=== PATIENT | female | born 1985 | race Caucasian/White ===

== ENCOUNTER 2017-09-13 10:02 | Inpatient (IN) | payer OTHER ==
[~2017-09-13] VITALS: Ht 160 cm; Wt 45.5 kg
[~2017-09-13 10:02] MED LIST: ONDA4TAB12 PO; OXYC-145 PO; OXYC-150 PO; pantoprazole 40 MG vial IV SCH
[2017-09-13] MEDS ORDERED: ondansetron/PF 4mg/2ml inj IV ONE ×2 (10:15→18:25)
[2017-09-13] MEDS ORDERED: normal saline 1000ml 1,000 ML IV ONE ×3 (10:15→22:06)
[2017-09-13] MEDS ORDERED: morphine 5 MG/ML injection IV ONE (10:15)
[2017-09-13] MEDS ORDERED: morphine sulfate 8 MG/ML SYRINGE IV ONE ×2 (10:35→11:05)
[2017-09-13 11:12] LABS: BASOPHILS % (AUTO) 0 % (0-1); EOSINOPHILS # (AUTO) 0.2 X10'3 (0-0.9); EOSINOPHILS % (AUTO) 1.5 % (0-6); HEMATOCRIT 38.2 % (35.0-45.0); HEMOGLOBIN 12.9 g/dl (12.0-16.0); LYMPHOCYTES # (AUTO) 0.6 X10'3 (1.1-4.8); LYMPHOCYTES % (AUTO) 3.7 % (21-51); MEAN CORPUSCULAR HEMOGLOBIN 29.6 PG (27.0-31.0); MEAN CORPUSCULAR HGB CONC 33.8 % (33.0-36.5); MEAN CORPUSCULAR VOLUME 87.5 FL (78-98); MEAN PLATELET VOLUME 8.4 FL (7.4-10.4); MONOCYTES # (AUTO) 0.8 X10'3 (0-0.9); MONOCYTES % (AUTO) 5.3 % (2-12); NEUTROPHILS # (AUTO) 14.2 X10'3 (1.8-7.7); NEUTROPHILS % (AUTO) 89.5 % (42-75); PLATELET COUNT 250 X10'3 (140-440); RED BLOOD COUNT 4.36 X10'6 (4.20-5.60); RED CELL DISTRIBUTION WIDTH 13.9 % (11.5-14.5); WHITE BLOOD COUNT 15.9 X10'3 (4.5-11.0)
[2017-09-13 11:19] LABS: ALANINE AMINOTRANSFERASE 27 U/L (12-78); ALBUMIN 3.6 G/DL (3.4-5.0); ALBUMIN/GLOBULIN RATIO 0.9 (1.1-1.5); ALKALINE PHOSPHATASE 53 IU/L (46-116); ANION GAP 7 (8-16); ASPARTATE AMINO TRANSFERASE 17 U/L (10-37); BILIRUBIN,TOTAL 0.5 MG/DL (0.1-1.0); BLOOD UREA NITROGEN 10 MG/DL (7-18); BUN/CREATININE RATIO 15.2 (6.6-38.0); CALCIUM 8.8 MG/DL (8.5-10.1); CHLORIDE 103 MMOL/L (99-107); CREATININE 0.66 MG/DL (0.40-0.90); GLUCOSE 104 MG/DL (70-104); LIPASE 102 U/L (73-393); POTASSIUM 3.6 MMOL/L (3.5-5.1); SODIUM 137 MMOL/L (135-145); TOTAL CARBON DIOXIDE 26.6 MMOL/L (24-32); TOTAL PROTEIN 7.4 G/DL (6.4-8.2); eGFR > 90 ML/MIN
[2017-09-13] MEDS ORDERED: ketorolac trometh. 30mg/ml inj. IV ONE ×2 (11:45→21:10)
[2017-09-13 12:23] LABS: PLATELET ESTIMATE NORMAL; TOTAL CELLS COUNTED 100; TOXIC GRANULATION 1+
[2017-09-13 12:31] LABS: CLARITY,URINE Clear (Clear); COLOR,URINE Yellow (Yellow); GLUCOSE, URINE Negative (Neg); KETONES,URINE Trace mg/dl (Neg); LEUKOCYTE ESTERASE ,URINE Negative (Neg); NITRITES, URINE Negative (Neg); OCCULT BLOOD,URINE Negative (Neg); PROTEIN,URINE Negative (Neg); UROBILINOGEN,URINE 0.2 E.U/dL (0.2-1.0)
[2017-09-13 12:32] LABS: UA COLLECTION TYPE CLN CATCH MIDSTREAM
[2017-09-13 12:33] LABS: URINE HCG POSITIVE (NEG)
[2017-09-13] MEDS ORDERED: LORazepam 2 mg/ml vial IV ONE (12:45)
[2017-09-13] MEDS ORDERED: fentaNYL/PF 50MCG/1 ML 2ML syringe IV ONE ×4 (12:45→19:50)
[2017-09-13 13:02] LABS: BETA HCG,QUANTITATIVE 99 mIU/ml
[2017-09-13] MEDS ORDERED: piperacillin/tazo 3.375gm/50ml 50 ML IV ONE (14:05)
[2017-09-13] MEDS ORDERED: ONDA8TAB9 PO (14:29)
[2017-09-13] MEDS ORDERED: LIDOcaine Viscous 15ml cup PO ONE (15:00)
[2017-09-13] MEDS ORDERED: mag hydrox/Alum hydrox/simeth 30ml oral suspension PO ONE (15:00)
[2017-09-13] MEDS ORDERED: HYDR-565 PO (15:56)
[2017-09-13] MEDS ORDERED: MAG355OR18 PO (17:00)
[2017-09-13] MEDS ORDERED: LIDO15SO2 PO (17:00)
[2017-09-13] MEDS ORDERED: SUCR1ORA2 PO (17:00)
[2017-09-13] MEDS ORDERED: acetaminophen 325mg tablet PO ONE (18:10)
[2017-09-13] MEDS ORDERED: normal saline 1000ml 1,000 ML IV SCH ×2 (18:10→21:45)
[2017-09-13] MEDS ORDERED: TRAM50TA2 PO (18:21)
[2017-09-13] MEDS ORDERED: ALPR1TAB7 PO (18:21)
[2017-09-13] MEDS ORDERED: NORG1TAB (18:21)
[2017-09-13] MEDS ORDERED: GUAI473S11 (18:21)
[2017-09-13] MEDS ORDERED: ZOLP10TA5 PO (18:21)
[2017-09-13] MEDS ORDERED: MICO1KIT8 (18:21)
[2017-09-13] MEDS ORDERED: LEVO750T46 PO (18:21)
[2017-09-13] MEDS ORDERED: temazepam 15mg capsule PO PRN (21:00)
[2017-09-13] MEDS ORDERED: HYDROcodone/acetaminophen 5mg/325mg tablet PO PRN (21:35)
[2017-09-13] MEDS ORDERED: bisacodyl 10mg suppository rectal RC PRN (21:35)
[2017-09-13] MEDS ORDERED: acetaminophen 650mg rectal suppository RC PRN (21:35)
[2017-09-13] MEDS ORDERED: diphenhydrAMINE 25mg capsule PO PRN (21:35)
[2017-09-13] MEDS ORDERED: acetaminophen 325mg tablet PO PRN ×2 (21:35)
[2017-09-13] MEDS ORDERED: HYDROmorphone 1 mg/ml syringe IV PRN ×2 (21:35)
[2017-09-13] MEDS ORDERED: magnesium hydroxide 30ml (MOM) UD suspension PO PRN (21:35)
[2017-09-13] MEDS ORDERED: diphenhydrAMINE 50 mg/ml inj IV PRN (21:35)
[2017-09-13] MEDS ORDERED: metoclopramide 5 mg/ml inj IV ONE (21:40)
[2017-09-13] MEDS ORDERED: proCHLORperazine 10 MG/2 ml inj IV ONE (21:45)
[2017-09-13] MEDS ORDERED: diphenhydrAMINE 50 mg/ml inj IV ONE (21:45)
[2017-09-13] MEDS ORDERED: enoxaparin 60mg/0.6ml syringe SUBCUT ONE (22:06)
[2017-09-13 22:07] LABS: D-DIMER 2.02 MG/L FEU (0-0.50)
[2017-09-13 22:15] LABS: CREATINE KINASE 50 U/L (26-192); MAGNESIUM 1.6 MG/DL (1.5-2.4); PHOSPHORUS 1.4 MG/DL (2.3-4.5); TROPONIN I < 0.04 NG/ML (0.0-0.05)
[2017-09-13] MEDS: normal saline 1000ml 1,000 ML IV SCH (22:21)
[2017-09-13] MEDS: HYDROcodone/acetaminophen 10/325mg tab PO PRN (22:22)
[2017-09-13] MEDS: ALPRAZolam 0.5mg tablet PO PRN (23:02)
[2017-09-13] MEDS: cefTRIAXone 1g/NS 100ml IVPB 100 ML IV SCH (23:02)
[2017-09-13] MEDS: zolpidem 5mg tablet PO SCH (23:03)
[2017-09-13] MEDS: azithromycin/NS 500mg/250ml 250 ML IV SCH (23:03)
[2017-09-13 23:48] VITALS: BP 99/53
[2017-09-14] MEDS: methylPREDNISolone sod succ 125mg/2ml vial IV SCH ×3 (00:02→15:34)
[2017-09-14] MEDS: morphine sulfate 8 MG/ML SYRINGE IV PRN ×4 (00:02→11:20)
[2017-09-14] MEDS: HYDROcodone/acetaminophen 10/325mg tab PO PRN ×3 (05:25→14:21)
[2017-09-14] MEDS ORDERED: sodium phosphate inj. 30 MMOL in dextrose 5%-water 250 ML IV PRN (05:59)
[2017-09-14] MEDS ORDERED: sodium phosphate inj. 15 MMOL in dextrose 5%-water 150 ML IV PRN (05:59)
[2017-09-14] MEDS ORDERED: Neutra Phos packet PO PRN (06:00)
[2017-09-14 06:04] LABS: BASOPHILS % (AUTO) 0 % (0-1); EOSINOPHILS # (AUTO) 0.1 X10'3 (0-0.9); EOSINOPHILS % (AUTO) 1.5 % (0-6); HEMATOCRIT 30.7 % (35.0-45.0); HEMOGLOBIN 10.2 g/dl (12.0-16.0); LYMPHOCYTES # (AUTO) 0.2 X10'3 (1.1-4.8); LYMPHOCYTES % (AUTO) 2.7 % (21-51); MEAN CORPUSCULAR HEMOGLOBIN 29.1 PG (27.0-31.0); MEAN CORPUSCULAR HGB CONC 33.1 % (33.0-36.5); MEAN CORPUSCULAR VOLUME 87.8 FL (78-98); MEAN PLATELET VOLUME 8.3 FL (7.4-10.4); MONOCYTES # (AUTO) 0.1 X10'3 (0-0.9); MONOCYTES % (AUTO) 1.5 % (2-12); NEUTROPHILS % (AUTO) 94.3 % (42-75); PLATELET COUNT 216 X10'3 (140-440); RED BLOOD COUNT 3.49 X10'6 (4.20-5.60); WHITE BLOOD COUNT 8.5 X10'3 (4.5-11.0)
[2017-09-14 06:20] LABS: ALANINE AMINOTRANSFERASE 23 U/L (12-78); ALBUMIN 2.7 G/DL (3.4-5.0); ALBUMIN/GLOBULIN RATIO 0.8 (1.1-1.5); ALKALINE PHOSPHATASE 42 IU/L (46-116); ANION GAP 6 (8-16); ASPARTATE AMINO TRANSFERASE 12 U/L (10-37); BILIRUBIN,TOTAL 0.2 MG/DL (0.1-1.0); BLOOD UREA NITROGEN 6 MG/DL (7-18); BUN/CREATININE RATIO 8.3 (6.6-38.0); CALCIUM 7.6 MG/DL (8.5-10.1); CHLORIDE 109 MMOL/L (99-107); CREATININE 0.72 MG/DL (0.40-0.90); GLUCOSE 161 MG/DL (70-104); PHOSPHORUS 1.7 MG/DL (2.3-4.5); POTASSIUM 3.7 MMOL/L (3.5-5.1); SODIUM 141 MMOL/L (135-145); TOTAL CARBON DIOXIDE 25.8 MMOL/L (24-32); TOTAL PROTEIN 5.9 G/DL (6.4-8.2); eGFR > 90 ML/MIN
[2017-09-14 06:30] VITALS: BP 111/63
[2017-09-14 07:14] LABS: OCCULT BLOOD STOOL POSITIVE (Neg)
[2017-09-14] MEDS: ondansetron/PF 4mg/2ml inj IV PRN ×3 (07:48→20:45)
[2017-09-14] MEDS: cefTRIAXone 1g/NS 100ml IVPB 100 ML IV SCH (07:54)
[2017-09-14] MEDS: azithromycin/NS 500mg/250ml 250 ML IV SCH (07:55)
[2017-09-14 07:57] LABS: C DIFF ANTIGEN NEGATIVE (NEGATIVE); C DIFF SPECIMEN=DIARRHEA? ACCEPTABLE; C DIFFICILE TOXINS A&B NEGATIVE (Neg)
[2017-09-14] MEDS: docusate sod 100mg capsule PO SCH ×2 (07:57→20:00)
[2017-09-14] MEDS: normal saline 1000ml 1,000 ML IV SCH ×2 (07:57→17:19)
[2017-09-14] MEDS: enoxaparin 50mg/0.5ml (from 3ml vial) syringe SUBCUT SCH ×2 (07:58→20:00)
[2017-09-14] MEDS: ALPRAZolam 0.5mg tablet PO PRN ×2 (09:19→20:04)
[2017-09-14 12:16] VITALS: BP 118/64
[2017-09-14] MEDS ORDERED: fluconazole 150mg tablet PO ONE (13:05)
[2017-09-14] MEDS: albuterol 2.5 MG/3 ML nebule NEB PRN ×3 (13:48→22:23)
[2017-09-14] MEDS ORDERED: LORazepam 2 mg/ml vial IV STA (15:58)
[2017-09-14] MEDS ORDERED: LORazepam 2 mg/ml vial ONE (16:02)
[2017-09-14 16:11] LABS: ABG BASE EXCESS -7.5 mmol/L (-2.0-3.0); ABG HCO3 10.6 mmol/L (22.0-26.0); ABG OXYGEN SATURATION 98.7 % (95-98); ABG PH (T) 7.603 (7.350-7.450); ABG PO2 (T) 121.4 mmHg (83-108); FCOHb 0.3 % (0.5-1.5); FLOW 5 L/min; FMetHb 0.3 % (0.3-1.12); FO2Hb 98.1 % (94-100); RESPIRATORY RATE (OBSERVED) 40 b/min; TOTAL HEMOGLOBIN 12.2 G/dl (12.0-16.0)
[2017-09-14] MEDS: lactobacillus rhamnosus 10,000 MMU CELLS/CAPSULE PO SCH (17:19)
[2017-09-14] MEDS ORDERED: iohexol 350MG/ML 100ml bottle IV ONE (18:09)
[2017-09-14] MEDS ORDERED: morphine/NS 5 mg/ml CADD 50 ML IV SCH (18:10)
[2017-09-14] MEDS ORDERED: CADD PCA waste documentation MC SCH (18:15)
[2017-09-14] MEDS: MORPHINE CADD 5 MG/ML 50ML IV SCH ×4 (19:00→23:00)
[2017-09-14 20:00] VITALS: BP 131/66
[2017-09-14] MEDS: LACTOSE-FREE FOOD 237ML (BOOST) PO SCH (20:46)
[2017-09-14] MEDS: codeine/proMETHazine 5ml UD syrup PO PRN (22:22)
[2017-09-14] MEDS: benzonatate 100mg capsule PO PRN (22:22)
[2017-09-14] MEDS: guaiFENesin ER 600mg tablet PO SCH (22:30)
[2017-09-14] MEDS: zolpidem 5mg tablet PO SCH (22:33)
[2017-09-15] VITALS: BP 94/53
[2017-09-15] MEDS: normal saline 1000ml 1,000 ML IV SCH (00:34)
[2017-09-15] MEDS: methylPREDNISolone sod succ 125mg/2ml vial IV SCH ×3 (00:40→16:27)
[2017-09-15] MEDS: MORPHINE CADD 5 MG/ML 50ML IV SCH ×12 (00:49→23:00)
[2017-09-15] MEDS: ondansetron/PF 4mg/2ml inj IV PRN ×3 (03:52→19:56)
[2017-09-15] MEDS: codeine/proMETHazine 5ml UD syrup PO PRN ×2 (03:52→19:54)
[2017-09-15] MEDS: benzonatate 100mg capsule PO PRN ×2 (03:52→10:23)
[2017-09-15] MEDS: albuterol 2.5 MG/3 ML nebule NEB PRN ×4 (03:53→21:18)
[2017-09-15] MEDS ORDERED: HYDROcodone/acetaminophen 5mg/325mg tablet PO ONE (05:10)
[2017-09-15 07:24] VITALS: BP 110/65
[2017-09-15] MEDS: enoxaparin 50mg/0.5ml (from 3ml vial) syringe SUBCUT SCH ×2 (07:28→20:00)
[2017-09-15 07:45] LABS: BASOPHILS % (AUTO) 0 % (0-1); EOSINOPHILS # (AUTO) 0.3 X10'3 (0-0.9); EOSINOPHILS % (AUTO) 1.9 % (0-6); HEMATOCRIT 27.3 % (35.0-45.0); HEMOGLOBIN 9.2 g/dl (12.0-16.0); LYMPHOCYTES # (AUTO) 0.3 X10'3 (1.1-4.8); LYMPHOCYTES % (AUTO) 1.9 % (21-51); MEAN CORPUSCULAR HEMOGLOBIN 29.3 PG (27.0-31.0); MEAN CORPUSCULAR HGB CONC 33.7 % (33.0-36.5); MEAN CORPUSCULAR VOLUME 87.1 FL (78-98); MONOCYTES # (AUTO) 0.4 X10'3 (0-0.9); MONOCYTES % (AUTO) 2.7 % (2-12); NEUTROPHILS # (AUTO) 15.1 X10'3 (1.8-7.7); NEUTROPHILS % (AUTO) 93.5 % (42-75); PLATELET COUNT 247 X10'3 (140-440); RED BLOOD COUNT 3.14 X10'6 (4.20-5.60); RED CELL DISTRIBUTION WIDTH 14.3 % (11.5-14.5); WHITE BLOOD COUNT 16.1 X10'3 (4.5-11.0)
[2017-09-15] MEDS ORDERED: azithromycin 250mg tablet PO SCH (08:00)
[2017-09-15] MEDS: docusate sod 100mg capsule PO SCH ×2 (08:00→20:00)
[2017-09-15 08:12] LABS: ALANINE AMINOTRANSFERASE 23 U/L (12-78); ALBUMIN 2.8 G/DL (3.4-5.0); ALBUMIN/GLOBULIN RATIO 0.9 (1.1-1.5); ALKALINE PHOSPHATASE 42 IU/L (46-116); ANION GAP 7 (8-16); ASPARTATE AMINO TRANSFERASE 12 U/L (10-37); BILIRUBIN,TOTAL 0.1 MG/DL (0.1-1.0); BLOOD UREA NITROGEN 5 MG/DL (7-18); BUN/CREATININE RATIO 8.2 (6.6-38.0); CALCIUM 8.1 MG/DL (8.5-10.1); CHLORIDE 111 MMOL/L (99-107); CREATININE 0.61 MG/DL (0.40-0.90); GLUCOSE 146 MG/DL (70-104); PHOSPHORUS 2.2 MG/DL (2.3-4.5); POTASSIUM 3.4 MMOL/L (3.5-5.1); SODIUM 144 MMOL/L (135-145); TOTAL CARBON DIOXIDE 26.2 MMOL/L (24-32); eGFR > 90 ML/MIN
[2017-09-15] MEDS: piperacillin-tazo 2.25gm/50ml 50 ML IV SCH ×2 (08:30→16:27)
[2017-09-15] MEDS: guaiFENesin ER 600mg tablet PO SCH ×2 (08:31→19:54)
[2017-09-15] MEDS: LACTOSE-FREE FOOD 237ML (BOOST) PO SCH ×3 (08:39→18:20)
[2017-09-15] MEDS: benzocaine/menthol oral lozeng 1 EACH BOX MM PRN ×2 (08:41→20:11)
[2017-09-15] MEDS: lactobacillus rhamnosus 10,000 MMU CELLS/CAPSULE PO SCH ×2 (08:45→17:30)
[2017-09-15] MEDS: ALPRAZolam 0.5mg tablet PO PRN (10:23)
[2017-09-15] MEDS: cefTRIAXone 1g/NS 100ml IVPB 100 ML IV SCH (11:57)
[2017-09-15 12:00] VITALS: BP 114/46
[2017-09-15] MEDS ORDERED: furosemide 20 MG/2 ML vial IV ONE (12:20)
[2017-09-15] MEDS ORDERED: iohexol 350MG/ML 100ml bottle IV ONE (13:47)
[2017-09-15] MEDS ORDERED: albuterol 2.5 MG/3 ML nebule NEB ONE (13:55)
[2017-09-15] MEDS: proCHLORperazine 10 MG/2 ml inj IV PRN ×2 (13:58→21:42)
[2017-09-15 14:16] LABS: ABG BASE EXCESS -3.8 mmol/L (-2.0-3.0); ABG HCO3 15.7 mmol/L (22.0-26.0); ABG OXYGEN SATURATION 98.8 % (95-98); ABG PCO2 (T) 16.5 mmHg (32.0-45.0); ABG PH (T) 7.596 (7.350-7.450); ABG PO2 (T) 159.9 mmHg (83-108); ALLEN'S TEST Positive; FCOHb 0.2 % (0.5-1.5); FLOW 10 L/min; FMetHb 0.1 % (0.3-1.12); FO2Hb 98.5 % (94-100); RESPIRATORY RATE (OBSERVED) 40 b/min
[2017-09-15] MEDS ORDERED: iohexol 300mg/ml 100ml inj. ONE (14:40)
[2017-09-15 20:00] VITALS: BP 107/74
[2017-09-15] MEDS: LORazepam 2 mg/ml vial IV ONE ×2 (20:14→22:31)
[2017-09-16] VITALS: BP 117/82
[2017-09-16] MEDS: methylPREDNISolone sod succ 125mg/2ml vial IV SCH ×3 (00:22→23:45)
[2017-09-16] MEDS: LORazepam 2 mg/ml vial IV PRN ×3 (00:26→19:18)
[2017-09-16] MEDS: piperacillin-tazo 2.25gm/50ml 50 ML IV SCH ×3 (00:26→16:28)
[2017-09-16] MEDS: zolpidem 5mg tablet PO SCH ×2 (00:28→23:46)
[2017-09-16] MEDS: MORPHINE CADD 5 MG/ML 50ML IV SCH ×12 (01:00→23:00)
[2017-09-16 07:03] LABS: BASOPHILS % (AUTO) 0 % (0-1); EOSINOPHILS # (AUTO) 0.4 X10'3 (0-0.9); HEMATOCRIT 28.1 % (35.0-45.0); HEMOGLOBIN 9.4 g/dl (12.0-16.0); LYMPHOCYTES # (AUTO) 0.4 X10'3 (1.1-4.8); LYMPHOCYTES % (AUTO) 2.5 % (21-51); MEAN CORPUSCULAR HEMOGLOBIN 29.2 PG (27.0-31.0); MEAN CORPUSCULAR HGB CONC 33.3 % (33.0-36.5); MEAN CORPUSCULAR VOLUME 87.9 FL (78-98); MONOCYTES # (AUTO) 0.4 X10'3 (0-0.9); MONOCYTES % (AUTO) 2.4 % (2-12); NEUTROPHILS # (AUTO) 16.8 X10'3 (1.8-7.7); NEUTROPHILS % (AUTO) 93.1 % (42-75); PLATELET COUNT 311 X10'3 (140-440); RED CELL DISTRIBUTION WIDTH 14.5 % (11.5-14.5); WHITE BLOOD COUNT 18.1 X10'3 (4.5-11.0)
[2017-09-16 07:20] VITALS: BP 101/53
[2017-09-16 07:26] LABS: ALANINE AMINOTRANSFERASE 28 U/L (12-78); ALBUMIN 2.7 G/DL (3.4-5.0); ALBUMIN/GLOBULIN RATIO 0.9 (1.1-1.5); ALKALINE PHOSPHATASE 40 IU/L (46-116); ANION GAP 6 (8-16); ASPARTATE AMINO TRANSFERASE 15 U/L (10-37); BETA HCG,QUANTITATIVE 218 mIU/ml; BILIRUBIN,TOTAL 0.2 MG/DL (0.1-1.0); BLOOD UREA NITROGEN 12 MG/DL (7-18); CALCIUM 8.3 MG/DL (8.5-10.1); CHLORIDE 109 MMOL/L (99-107); CREATININE 0.63 MG/DL (0.40-0.90); GLUCOSE 146 MG/DL (70-104); POTASSIUM 3.6 MMOL/L (3.5-5.1); SODIUM 144 MMOL/L (135-145); TOTAL CARBON DIOXIDE 28.8 MMOL/L (24-32); TOTAL PROTEIN 5.8 G/DL (6.4-8.2); eGFR > 90 ML/MIN
[2017-09-16 07:31] LABS: HIV ANTIBODY 1&2 RAPID NON-REACTIVE (Neg)
[2017-09-16] MEDS: cefTRIAXone 1g/NS 100ml IVPB 100 ML IV SCH ×2 (08:00→23:47)
[2017-09-16] MEDS: docusate sod 100mg capsule PO SCH ×2 (08:00→20:00)
[2017-09-16] MEDS: LACTOSE-FREE FOOD 237ML (BOOST) PO SCH ×3 (08:00→18:05)
[2017-09-16 11:00] VITALS: BP 109/71
[2017-09-16] MEDS: albuterol 2.5 MG/3 ML nebule NEB PRN ×4 (11:39→22:20)
[2017-09-16] MEDS: guaiFENesin ER 600mg tablet PO SCH ×2 (11:44→22:48)
[2017-09-16] MEDS: benzonatate 100mg capsule PO PRN ×2 (11:45→23:46)
[2017-09-16] MEDS: lactobacillus rhamnosus 10,000 MMU CELLS/CAPSULE PO SCH ×2 (11:45→17:30)
[2017-09-16] MEDS: ALPRAZolam 0.5mg tablet PO PRN (11:46)
[2017-09-16] MEDS: codeine/proMETHazine 5ml UD syrup PO PRN (11:46)
[2017-09-16] MEDS: normal saline 1000ml 1,000 ML IV SCH (12:27)
[2017-09-16] MEDS: ondansetron/PF 4mg/2ml inj IV PRN ×2 (12:54→19:32)
[2017-09-16] MEDS: proCHLORperazine 10 MG/2 ml inj IV PRN ×2 (15:35→22:59)
[2017-09-16 19:00] VITALS: BP 119/68
[2017-09-16] MEDS ORDERED: furosemide 20 MG/2 ML vial IV PRN ×2 (20:30→20:50)
[2017-09-16] MEDS ORDERED: LORazepam 2 mg/ml vial IV PRN (22:20)
[2017-09-16] MEDS: guaiFENesin/DM 10ml UD oral syrup PO PRN (22:53)
[2017-09-17] VITALS: BP 130/68
[2017-09-17] MEDS: zolpidem 5mg tablet PO SCH (00:30)
[2017-09-17] MEDS: guaiFENesin ER 600mg tablet PO SCH ×2 (00:30→08:22)
[2017-09-17] MEDS: ALPRAZolam 0.5mg tablet PO PRN (00:53)
[2017-09-17] MEDS: piperacillin-tazo 2.25gm/50ml 50 ML IV SCH ×3 (00:54→16:30)
[2017-09-17] MEDS: MORPHINE CADD 5 MG/ML 50ML IV SCH ×12 (01:00→23:00)
[2017-09-17] MEDS: albuterol 2.5 MG/3 ML nebule NEB PRN ×5 (01:09→20:08)
[2017-09-17] MEDS: normal saline 1000ml 1,000 ML IV SCH (02:26)
[2017-09-17] MEDS: codeine/proMETHazine 5ml UD syrup PO PRN (02:26)
[2017-09-17 07:00] VITALS: BP 107/58
[2017-09-17 07:17] LABS: BASOPHILS % (AUTO) 0 % (0-1); EOSINOPHILS # (AUTO) 0.2 X10'3 (0-0.9); EOSINOPHILS % (AUTO) 1.4 % (0-6); HEMATOCRIT 27.4 % (35.0-45.0); HEMOGLOBIN 9.1 g/dl (12.0-16.0); LYMPHOCYTES # (AUTO) 0.4 X10'3 (1.1-4.8); LYMPHOCYTES % (AUTO) 3.2 % (21-51); MEAN CORPUSCULAR HEMOGLOBIN 29.3 PG (27.0-31.0); MEAN CORPUSCULAR HGB CONC 33.2 % (33.0-36.5); MEAN CORPUSCULAR VOLUME 88.3 FL (78-98); MEAN PLATELET VOLUME 7.8 FL (7.4-10.4); MONOCYTES # (AUTO) 0.3 X10'3 (0-0.9); MONOCYTES % (AUTO) 2.3 % (2-12); NEUTROPHILS # (AUTO) 12.6 X10'3 (1.8-7.7); NEUTROPHILS % (AUTO) 93.1 % (42-75); PLATELET COUNT 322 X10'3 (140-440); RED BLOOD COUNT 3.11 X10'6 (4.20-5.60); RED CELL DISTRIBUTION WIDTH 14.5 % (11.5-14.5); WHITE BLOOD COUNT 13.5 X10'3 (4.5-11.0)
[2017-09-17 07:34] LABS: ALANINE AMINOTRANSFERASE 100 U/L (12-78); ALBUMIN 2.6 G/DL (3.4-5.0); ALBUMIN/GLOBULIN RATIO 0.8 (1.1-1.5); ALKALINE PHOSPHATASE 54 IU/L (46-116); ANION GAP 8 (8-16); ASPARTATE AMINO TRANSFERASE 39 U/L (10-37); BILIRUBIN,TOTAL 0.2 MG/DL (0.1-1.0); BLOOD UREA NITROGEN 14 MG/DL (7-18); BUN/CREATININE RATIO 21.5 (6.6-38.0); CALCIUM 7.9 MG/DL (8.5-10.1); CHLORIDE 107 MMOL/L (99-107); CREATININE 0.65 MG/DL (0.40-0.90); GLUCOSE 133 MG/DL (70-104); PHOSPHORUS 3.1 MG/DL (2.3-4.5); POTASSIUM 3.8 MMOL/L (3.5-5.1); SODIUM 141 MMOL/L (135-145); TOTAL CARBON DIOXIDE 26.5 MMOL/L (24-32); TOTAL PROTEIN 5.7 G/DL (6.4-8.2); eGFR > 90 ML/MIN
[2017-09-17] MEDS: cefTRIAXone 1g/NS 100ml IVPB 100 ML IV SCH (08:00)
[2017-09-17] MEDS: lactobacillus rhamnosus 10,000 MMU CELLS/CAPSULE PO SCH ×2 (08:22→17:16)
[2017-09-17] MEDS: docusate sod 100mg capsule PO SCH ×2 (08:22→20:00)
[2017-09-17] MEDS: methylPREDNISolone sod succ 125mg/2ml vial IV SCH ×2 (08:23→16:30)
[2017-09-17] MEDS: LACTOSE-FREE FOOD 237ML (BOOST) PO SCH ×3 (08:23→19:45)
[2017-09-17] MEDS ORDERED: CefTRIAXone/D5W-Rocephin 1gm 50 ML IV ONE (10:00)
[2017-09-17] MEDS: ondansetron/PF 4mg/2ml inj IV PRN ×2 (10:08→19:29)
[2017-09-17] MEDS: benzonatate 100mg capsule PO PRN ×2 (10:08→19:29)
[2017-09-17] MEDS: guaiFENesin/DM 10ml UD oral syrup PO PRN (10:09)
[2017-09-17 11:00] VITALS: BP 118/67
[2017-09-17 13:25] LABS: URINE AMPHETAMINE SCREEN NEGATIVE (Neg); URINE BARBITUATE SCREEN NEGATIVE (Neg); URINE BENZODIAZEPINES SCREEN POSITIVE (Neg); URINE CANNABINOID SCREEN NEGATIVE (Neg); URINE COCAINE SCREEN NEGATIVE (Neg); URINE METHADONE SCREEN NEGATIVE (Neg); URINE OPIATE SCREEN POSITIVE (Neg); URINE PHENCYCLIDINE SCREEN NEGATIVE (Neg)
[2017-09-17] MEDS ORDERED: ALPRAZolam 0.5mg tablet PO PRN (16:40)
[2017-09-17] MEDS ORDERED: vancomycin/NS 1 GM ADD-VANTAGE 250 ML IV ONE (16:50)
[2017-09-17] MEDS: levoFLOXACIN-Levaquin 750MG/D5 150 ML IV SCH (19:29)
[2017-09-17] MEDS: LORazepam 2 mg/ml vial IV PRN (19:52)
[2017-09-17 20:00] VITALS: BP 131/60
[2017-09-18] MEDS: albuterol 2.5 MG/3 ML nebule NEB PRN ×5 (00:24→19:29)
[2017-09-18] MEDS: proCHLORperazine 10 MG/2 ml inj IV PRN ×3 (00:30→20:46)
[2017-09-18] MEDS: piperacillin-tazo 2.25gm/50ml 50 ML IV SCH ×2 (00:30→09:08)
[2017-09-18] MEDS: codeine/proMETHazine 5ml UD syrup PO PRN ×3 (00:30→22:27)
[2017-09-18] MEDS: ALPRAZolam 0.5mg tablet PO PRN ×2 (00:30→22:28)
[2017-09-18] MEDS: benzocaine/menthol oral lozeng 1 EACH BOX MM PRN ×3 (00:30→20:47)
[2017-09-18] MEDS: methylPREDNISolone sod succ 125mg/2ml vial IV SCH ×3 (00:30→16:57)
[2017-09-18] MEDS: MORPHINE CADD 5 MG/ML 50ML IV SCH ×12 (01:00→23:00)
[2017-09-18] MEDS ORDERED: VANCOMYCIN 750MG IV in NS 250 ML IV SCH (01:00)
[2017-09-18] MEDS: ondansetron/PF 4mg/2ml inj IV PRN ×2 (05:10→16:57)
[2017-09-18] MEDS: guaiFENesin/DM oral syrup 5 ML CUP PO PRN ×2 (05:11→20:48)
[2017-09-18] MEDS: benzonatate 100mg capsule PO PRN ×2 (05:12→20:48)
[2017-09-18] MEDS: mag hydrox/Alum hydrox/simeth 30ml oral suspension PO PRN (05:15)
[2017-09-18 05:49] LABS: BASOPHILS % (AUTO) 0 % (0-1); EOSINOPHILS # (AUTO) 0.2 X10'3 (0-0.9); EOSINOPHILS % (AUTO) 1.9 % (0-6); HEMATOCRIT 28.5 % (35.0-45.0); HEMOGLOBIN 9.6 g/dl (12.0-16.0); LYMPHOCYTES # (AUTO) 0.4 X10'3 (1.1-4.8); MEAN CORPUSCULAR HEMOGLOBIN 29.4 PG (27.0-31.0); MEAN CORPUSCULAR HGB CONC 33.6 % (33.0-36.5); MEAN CORPUSCULAR VOLUME 87.4 FL (78-98); MONOCYTES # (AUTO) 0.4 X10'3 (0-0.9); MONOCYTES % (AUTO) 2.9 % (2-12); NEUTROPHILS # (AUTO) 11.8 X10'3 (1.8-7.7); NEUTROPHILS % (AUTO) 92.2 % (42-75); PLATELET COUNT 344 X10'3 (140-440); RED BLOOD COUNT 3.25 X10'6 (4.20-5.60); RED CELL DISTRIBUTION WIDTH 14.8 % (11.5-14.5); WHITE BLOOD COUNT 12.8 X10'3 (4.5-11.0)
[2017-09-18 06:08] LABS: ALANINE AMINOTRANSFERASE 93 U/L (12-78); ALBUMIN 2.8 G/DL (3.4-5.0); ALBUMIN/GLOBULIN RATIO 0.9 (1.1-1.5); ALKALINE PHOSPHATASE 60 IU/L (46-116); ANION GAP 8 (8-16); ASPARTATE AMINO TRANSFERASE 24 U/L (10-37); BILIRUBIN,TOTAL 0.2 MG/DL (0.1-1.0); BLOOD UREA NITROGEN 15 MG/DL (7-18); CALCIUM 8.2 MG/DL (8.5-10.1); CHLORIDE 107 MMOL/L (99-107); CREATININE 0.75 MG/DL (0.40-0.90); GLUCOSE 132 MG/DL (70-104); PHOSPHORUS 3.1 MG/DL (2.3-4.5); POTASSIUM 3.6 MMOL/L (3.5-5.1); SODIUM 141 MMOL/L (135-145); eGFR > 90 ML/MIN
[2017-09-18] MEDS: lactobacillus rhamnosus 10,000 MMU CELLS/CAPSULE PO SCH ×3 (07:30→16:57)
[2017-09-18 08:00] VITALS: BP 129/61
[2017-09-18] MEDS: citalopram 20mg tablet PO SCH (08:00)
[2017-09-18] MEDS: docusate sod 100mg capsule PO SCH ×2 (08:00→20:00)
[2017-09-18] MEDS: guaiFENesin ER 600mg tablet PO SCH ×2 (08:00→20:43)
[2017-09-18] MEDS: LACTOSE-FREE FOOD 237ML (BOOST) PO SCH ×3 (08:58→18:00)
[2017-09-18] MEDS: LORazepam 2 mg/ml vial IV PRN (09:26)
[2017-09-18] MEDS: levoFLOXACIN-Levaquin 750MG/D5 150 ML IV SCH (10:09)
[2017-09-18 11:00] VITALS: BP 112/69
[2017-09-18] MEDS: VANCOMYCIN 750MG IV in NS 250 ML IV SCH ×2 (11:28→11:47)
[2017-09-18] MEDS: meropenem inj 1 GM in normal saline 100ml IV soln 100 ML IV SCH (17:00)
[2017-09-18 20:00] VITALS: BP 130/77
[2017-09-18] MEDS: clonazePAM 1mg tablet PO SCH (20:43)
[2017-09-18] MEDS: zolpidem 5mg tablet PO SCH (22:28)
[2017-09-19] VITALS: BP 108/76
[2017-09-19] MEDS: meropenem inj 1 GM in normal saline 100ml IV soln 100 ML IV SCH ×4 (00:12→23:40)
[2017-09-19] MEDS: methylPREDNISolone sod succ 125mg/2ml vial IV SCH ×3 (00:12→16:35)
[2017-09-19] MEDS ORDERED: VANCOMYCIN LEVEL IV NR (00:30)
[2017-09-19] MEDS: MORPHINE CADD 5 MG/ML 50ML IV SCH ×9 (01:00→17:00)
[2017-09-19 05:37] LABS: PHOSPHORUS 3.5 MG/DL (2.3-4.5)
[2017-09-19] MEDS: ondansetron/PF 4mg/2ml inj IV PRN ×2 (07:31→15:14)
[2017-09-19] MEDS: albuterol 2.5 MG/3 ML nebule NEB PRN ×3 (07:33→19:57)
[2017-09-19] MEDS: guaiFENesin ER 600mg tablet PO SCH ×2 (07:58→20:42)
[2017-09-19] MEDS: benzonatate 100mg capsule PO PRN ×3 (07:58→23:25)
[2017-09-19] MEDS: clonazePAM 1mg tablet PO SCH ×2 (07:58→20:42)
[2017-09-19] MEDS: lactobacillus rhamnosus 10,000 MMU CELLS/CAPSULE PO SCH ×2 (07:58→16:35)
[2017-09-19 08:00] VITALS: BP 126/76
[2017-09-19] MEDS: docusate sod 100mg capsule PO SCH ×2 (08:00→20:00)
[2017-09-19] MEDS: LACTOSE-FREE FOOD 237ML (BOOST) PO SCH ×3 (08:00→18:00)
[2017-09-19] MEDS: citalopram 20mg tablet PO SCH (08:00)
[2017-09-19] MEDS: ALPRAZolam 0.5mg tablet PO PRN ×2 (08:16→23:25)
[2017-09-19 09:26] LABS: BASOPHILS % (AUTO) 0.1 % (0-1); EOSINOPHILS % (AUTO) 0 % (0-6); HEMATOCRIT 28.3 % (35.0-45.0); HEMOGLOBIN 9.7 g/dl (12.0-16.0); LYMPHOCYTES # (AUTO) 0.4 X10'3 (1.1-4.8); LYMPHOCYTES % (AUTO) 3.5 % (21-51); MEAN CORPUSCULAR HEMOGLOBIN 30.1 PG (27.0-31.0); MEAN CORPUSCULAR HGB CONC 34.4 % (33.0-36.5); MEAN CORPUSCULAR VOLUME 87.6 FL (78-98); MEAN PLATELET VOLUME 8.5 FL (7.4-10.4); MONOCYTES # (AUTO) 0.5 X10'3 (0-0.9); MONOCYTES % (AUTO) 4.2 % (2-12); NEUTROPHILS # (AUTO) 11.7 X10'3 (1.8-7.7); NEUTROPHILS % (AUTO) 92.2 % (42-75); PLATELET COUNT 360 X10'3 (140-440); RED BLOOD COUNT 3.22 X10'6 (4.20-5.60); RED CELL DISTRIBUTION WIDTH 13.8 % (11.5-14.5); WHITE BLOOD COUNT 12.6 X10'3 (4.5-11.0)
[2017-09-19 10:29] LABS: ALANINE AMINOTRANSFERASE 77 U/L (12-78); ALBUMIN 2.6 G/DL (3.4-5.0); ALBUMIN/GLOBULIN RATIO 0.8 (1.1-1.5); ALKALINE PHOSPHATASE 54 IU/L (46-116); ANION GAP 8 (8-16); ASPARTATE AMINO TRANSFERASE 24 U/L (10-37); BILIRUBIN,TOTAL 0.2 MG/DL (0.1-1.0); BLOOD UREA NITROGEN 12 MG/DL (7-18); BUN/CREATININE RATIO 17.9 (6.6-38.0); CALCIUM 8.6 MG/DL (8.5-10.1); CHLORIDE 105 MMOL/L (99-107); CREATININE 0.67 MG/DL (0.40-0.90); GLUCOSE 120 MG/DL (70-104); POTASSIUM 4.1 MMOL/L (3.5-5.1); SODIUM 139 MMOL/L (135-145); TOTAL CARBON DIOXIDE 26.3 MMOL/L (24-32); TOTAL PROTEIN 5.7 G/DL (6.4-8.2); eGFR > 90 ML/MIN
[2017-09-19] MEDS: proCHLORperazine 10 MG/2 ml inj IV PRN ×2 (12:31→22:18)
[2017-09-19] MEDS: guaiFENesin/DM oral syrup 5 ML CUP PO PRN ×2 (12:31→20:41)
[2017-09-19] MEDS ORDERED: CADD PCA waste documentation MC SCH (19:25)
[2017-09-19 20:00] VITALS: BP 133/67
[2017-09-19] MEDS: HYDROcodone/acetaminophen 10/325mg tab PO PRN (20:42)
[2017-09-19] MEDS ORDERED: VANCOMYCIN LEVEL IV ONE (21:30)
[2017-09-19] MEDS: zolpidem 5mg tablet PO SCH (23:25)
[2017-09-19] MEDS: LORazepam 2 mg/ml vial IV PRN (23:25)
[2017-09-19] MEDS: codeine/proMETHazine 5ml UD syrup PO PRN (23:26)
[2017-09-20] VITALS: BP 120/48
[2017-09-20 05:57] LABS: BASOPHILS % (AUTO) 0 % (0-1); EOSINOPHILS # (AUTO) 0.1 X10'3 (0-0.9); EOSINOPHILS % (AUTO) 1.3 % (0-6); HEMATOCRIT 29.2 % (35.0-45.0); HEMOGLOBIN 9.8 g/dl (12.0-16.0); LYMPHOCYTES # (AUTO) 0.6 X10'3 (1.1-4.8); LYMPHOCYTES % (AUTO) 4.8 % (21-51); MEAN CORPUSCULAR HEMOGLOBIN 29.4 PG (27.0-31.0); MEAN CORPUSCULAR HGB CONC 33.5 % (33.0-36.5); MEAN CORPUSCULAR VOLUME 87.8 FL (78-98); MEAN PLATELET VOLUME 7.8 FL (7.4-10.4); MONOCYTES # (AUTO) 0.6 X10'3 (0-0.9); MONOCYTES % (AUTO) 5.2 % (2-12); NEUTROPHILS # (AUTO) 10.2 X10'3 (1.8-7.7); NEUTROPHILS % (AUTO) 88.7 % (42-75); PLATELET COUNT 371 X10'3 (140-440); RED BLOOD COUNT 3.33 X10'6 (4.20-5.60); WHITE BLOOD COUNT 11.5 X10'3 (4.5-11.0)
[2017-09-20 06:47] LABS: ALANINE AMINOTRANSFERASE 78 U/L (12-78); ALBUMIN 2.7 G/DL (3.4-5.0); ALBUMIN/GLOBULIN RATIO 0.9 (1.1-1.5); ALKALINE PHOSPHATASE 53 IU/L (46-116); ANION GAP 8 (8-16); ASPARTATE AMINO TRANSFERASE 15 U/L (10-37); BILIRUBIN,TOTAL 0.3 MG/DL (0.1-1.0); BLOOD UREA NITROGEN 18 MG/DL (7-18); CALCIUM 8.5 MG/DL (8.5-10.1); CHLORIDE 105 MMOL/L (99-107); CREATININE 0.75 MG/DL (0.40-0.90); GLUCOSE 99 MG/DL (70-104); POTASSIUM 3.9 MMOL/L (3.5-5.1); SODIUM 141 MMOL/L (135-145); TOTAL CARBON DIOXIDE 28.3 MMOL/L (24-32); TOTAL PROTEIN 5.6 G/DL (6.4-8.2); eGFR > 90 ML/MIN
[2017-09-20] MEDS: lactobacillus rhamnosus 10,000 MMU CELLS/CAPSULE PO SCH (07:30)
[2017-09-20] MEDS: citalopram 20mg tablet PO SCH (08:00)
[2017-09-20] MEDS: LACTOSE-FREE FOOD 237ML (BOOST) PO SCH ×3 (08:00→18:55)
[2017-09-20] MEDS: predniSONE 20 mg tablet PO SCH (08:00)
[2017-09-20] MEDS: docusate sod 100mg capsule PO SCH ×2 (08:00→19:57)
[2017-09-20 08:01] VITALS: BP 103/50
[2017-09-20 08:40] LABS: ELLIPTOCYTES FEW; PLATELET ESTIMATE NORMAL; POLYCHROMASIA FEW; TOTAL CELLS COUNTED 100
[2017-09-20 08:42] LABS: BURR CELLS 1+
[2017-09-20] MEDS: meropenem inj 1 GM in normal saline 100ml IV soln 100 ML IV SCH ×2 (10:20→15:40)
[2017-09-20] MEDS: clonazePAM 1mg tablet PO SCH ×2 (10:21→19:47)
[2017-09-20] MEDS: guaiFENesin ER 600mg tablet PO SCH ×2 (10:21→19:47)
[2017-09-20] MEDS: ondansetron/PF 4mg/2ml inj IV PRN ×2 (10:31→18:53)
[2017-09-20] MEDS: albuterol 2.5 MG/3 ML nebule NEB PRN ×2 (10:31→19:01)
[2017-09-20] MEDS: benzonatate 100mg capsule PO PRN ×2 (10:33→22:51)
[2017-09-20] MEDS: ALPRAZolam 0.5mg tablet PO PRN ×2 (10:34→22:50)
[2017-09-20] MEDS: guaiFENesin/DM oral syrup 5 ML CUP PO PRN (10:34)
[2017-09-20] MEDS: HYDROcodone/acetaminophen 10/325mg tab PO PRN ×3 (10:36→19:49)
[2017-09-20 11:30] VITALS: BP 118/72
[2017-09-20] MEDS: proCHLORperazine 10 MG/2 ml inj IV PRN ×2 (12:51→19:43)
[2017-09-20] MEDS: codeine/proMETHazine 5ml UD syrup PO PRN ×2 (14:19→19:43)
[2017-09-20 18:00] VITALS: BP 109/68
[2017-09-20] MEDS: zolpidem 5mg tablet PO SCH (22:51)
[2017-09-21] VITALS: BP 124/72
[2017-09-21] MEDS: HYDROcodone/acetaminophen 10/325mg tab PO PRN ×3 (00:07→14:36)
[2017-09-21] MEDS: meropenem inj 1 GM in normal saline 100ml IV soln 100 ML IV SCH ×2 (00:07→08:00)
[2017-09-21] MEDS: LORazepam 2 mg/ml vial IV PRN ×2 (02:11→12:53)
[2017-09-21] MEDS: ondansetron/PF 4mg/2ml inj IV PRN ×2 (02:11→09:12)
[2017-09-21] MEDS: mag hydrox/Alum hydrox/simeth 30ml oral suspension PO PRN (02:37)
[2017-09-21] MEDS: codeine/proMETHazine 5ml UD syrup PO PRN (02:42)
[2017-09-21 05:58] LABS: BASOPHILS % (AUTO) 0.1 % (0-1); EOSINOPHILS # (AUTO) 0.1 X10'3 (0-0.9); EOSINOPHILS % (AUTO) 1.7 % (0-6); HEMATOCRIT 30.2 % (35.0-45.0); LYMPHOCYTES # (AUTO) 1.7 X10'3 (1.1-4.8); LYMPHOCYTES % (AUTO) 21.3 % (21-51); MEAN CORPUSCULAR HGB CONC 33.2 % (33.0-36.5); MEAN CORPUSCULAR VOLUME 87.4 FL (78-98); MEAN PLATELET VOLUME 7.8 FL (7.4-10.4); MONOCYTES # (AUTO) 0.7 X10'3 (0-0.9); NEUTROPHILS # (AUTO) 5.3 X10'3 (1.8-7.7); NEUTROPHILS % (AUTO) 67.9 % (42-75); PLATELET COUNT 365 X10'3 (140-440); RED BLOOD COUNT 3.45 X10'6 (4.20-5.60); RED CELL DISTRIBUTION WIDTH 14.6 % (11.5-14.5); WHITE BLOOD COUNT 7.8 X10'3 (4.5-11.0)
[2017-09-21 06:34] LABS: ALANINE AMINOTRANSFERASE 68 U/L (12-78); ALBUMIN 2.6 G/DL (3.4-5.0); ALKALINE PHOSPHATASE 60 IU/L (46-116); ANION GAP 7 (8-16); ASPARTATE AMINO TRANSFERASE 14 U/L (10-37); BILIRUBIN,TOTAL 0.3 MG/DL (0.1-1.0); BLOOD UREA NITROGEN 24 MG/DL (7-18); BUN/CREATININE RATIO 29.3 (6.6-38.0); CALCIUM 7.8 MG/DL (8.5-10.1); CHLORIDE 103 MMOL/L (99-107); CREATININE 0.82 MG/DL (0.40-0.90); GLUCOSE 87 MG/DL (70-104); POTASSIUM 3.5 MMOL/L (3.5-5.1); SODIUM 141 MMOL/L (135-145); TOTAL CARBON DIOXIDE 31.3 MMOL/L (24-32); TOTAL PROTEIN 5.3 G/DL (6.4-8.2); eGFR 82 ML/MIN
[2017-09-21 07:19] VITALS: BP 86/54
[2017-09-21 07:30] VITALS: BP 93/44
[2017-09-21] MEDS ORDERED: LACTOBACILLUS RHAMNOSUS GG 15 billion unit sprinkle caps PO SCH (07:30)
[2017-09-21] MEDS: citalopram 20mg tablet PO SCH (08:00)
[2017-09-21] MEDS: docusate sod 100mg capsule PO SCH (08:00)
[2017-09-21] MEDS: LACTOSE-FREE FOOD 237ML (BOOST) PO SCH ×2 (08:00→13:00)
[2017-09-21] MEDS: clonazePAM 1mg tablet PO SCH (09:08)
[2017-09-21] MEDS: guaiFENesin ER 600mg tablet PO SCH (09:09)
[2017-09-21] MEDS: predniSONE 20 mg tablet PO SCH (09:09)
[2017-09-21] MEDS: benzonatate 100mg capsule PO PRN (09:10)
[2017-09-21] MEDS: guaiFENesin/DM oral syrup 5 ML CUP PO PRN ×2 (09:11→14:33)
[2017-09-21] MEDS: albuterol 2.5 MG/3 ML nebule NEB PRN ×2 (10:14→14:13)
[2017-09-21 11:34] VITALS: BP 127/78
[2017-09-21] MEDS ORDERED: ertapenem sod inj 1 GM in normal saline 100ml IV soln 100 ML IV SCH (11:50)
[2017-09-21] MEDS ORDERED: CITA20TA11 PO (14:20)
[2017-09-21] MEDS ORDERED: BENZ-34 PO (14:20)
[2017-09-21] MEDS ORDERED: PANT-47 PO (14:20)
[2017-09-21] MEDS ORDERED: GUAI473S11 PO (14:20)
[2017-09-21] MEDS ORDERED: HYDR-565 PO (14:20)
[2017-09-21] MEDS ORDERED: ALBU2.5V7 NEB (14:20)
[2017-09-21] MEDS ORDERED: GUAI5SYR5 PO (14:20)
[2017-09-21] MEDS ORDERED: ONDA4TAB12 PO (14:20)
[2017-09-21] MEDS: ALPRAZolam 0.5mg tablet PO PRN (14:33)
[2017-09-21] MEDS: proCHLORperazine 10 MG/2 ml inj IV PRN (14:33)
== END 2017-09-21 17:00 | disposition home or self-care (01) | DRG 781 ==
LOC: EEVIPCON 10:03 → ER 10:03 → ED HOLD 21:41 → MED 3N 22:36 → SUR 3N 09-15 19:21
PROVIDERS: ADMIT Family Medicine; ATTEND Family Medicine
PROC: B32T1ZZ Computerized Tomography (CT Scan) of Left Pulmonary Artery using Low Osmolar Contrast (ICD-10-PCS; principal; 2017-09-15)
PROC: B32S1ZZ Computerized Tomography (CT Scan) of Right Pulmonary Artery using Low Osmolar Contrast (ICD-10-PCS; 2017-09-15)
DX: O98.811 Other maternal infectious and parasitic diseases complicating pregnancy, first trimester (principal); A41.89 Other specified sepsis; J18.9 Pneumonia, unspecified organism; E83.39 Other disorders of phosphorus metabolism; B37.3 Candidiasis of vulva and vagina; D64.9 Anemia, unspecified; R65.20 Severe sepsis without septic shock; E05.90 Thyrotoxicosis, unspecified without thyrotoxic crisis or storm; J45.909 Unspecified asthma, uncomplicated; K52.9 Noninfective gastroenteritis and colitis, unspecified; E86.1 Hypovolemia; F41.0 Panic disorder [episodic paroxysmal anxiety]; R79.1 Abnormal coagulation profile; E87.6 Hypokalemia; F32.9 Major depressive disorder, single episode, unspecified; G43.909 Migraine, unspecified, not intractable, without status migrainosus; O26.891 Other specified pregnancy related conditions, first trimester; O99.511 Diseases of the respiratory system complicating pregnancy, first trimester; O99.011 Anemia complicating pregnancy, first trimester; O99.341 Other mental disorders complicating pregnancy, first trimester; O99.611 Diseases of the digestive system complicating pregnancy, first trimester; O99.351 Diseases of the nervous system complicating pregnancy, first trimester; Z3A.01 Less than 8 weeks gestation of pregnancy; Z79.899 Other long term (current) drug therapy
CPT/HCPCS: 36415; 36600; 71010; 71275; 76700; 76805; 76830; 80053; 80305; 81003; 81025; 82272; 82550; 82803; 83605; 83690; 83735; 83880; 84100; 84145; 84439; 84443; 84480; 84484; 84702; 85018; 85025; 85379; 86703; 86900; 86901; 87040; 87045; 87046; 87070; 87077; 87186; 87324; 87449; 89055; 93306; 94010; 94640; 94667; 94760; 96361; 96365; 96375; 96376; 99285; A4614; A6258; C9113; J0456; J0696; J0780; J1200; J1335; J1650; J1885; J1940; J1956; J2060; J2185; J2270; J2405; J2543; J2930; J3010; J3370; J7030; J7512; Q9967

== ENCOUNTER 2017-09-22 11:22 | Day surgery (SDC) | payer OTHER ==
[~2017-09-22 11:22] MED LIST changes: +ALBU2.5V7 NEB; +ALPR1TAB7 PO; +BENZ-34 PO; +CITA20TA11 PO; +GUAI473S11 PO; +GUAI5SYR5 PO; +HYDR-565 PO; +MAG355OR18 PO; -OXYC-145 PO; -OXYC-150 PO; +PANT-47 PO; +TRAM50TA2 PO; +ZOLP10TA5 PO; -pantoprazole 40 MG vial IV SCH
[2017-09-23] MEDS ORDERED: ertapenem sod inj 1 GM in normal saline 100ml IVPB IV SCH (08:00)
== END 2017-09-22 15:00 | disposition home or self-care (01) ==
LOC: SSTAY O 11:22
PROVIDERS: ATTEND Internal Medicine
DX: A41.9 Sepsis, unspecified organism (principal)
CPT/HCPCS: J1335; J7030

== ENCOUNTER 2017-09-23 10:04 | Day surgery (SDC) | payer OTHER ==
[2017-09-23] MEDS ORDERED: ertapenem sod inj 1 GM in normal saline 100ml IVPB IV ONE (10:15)
== END 2017-09-23 15:05 | disposition home or self-care (01) ==
LOC: ER 10:04 → ED HOLD 10:05 → S STAY 10:06 → ER 15:05 → LAB 15:05 → S STAY 15:05 → EDSTATUS 09-24 12:55
PROVIDERS: ATTEND Internal Medicine
DX: A41.9 Sepsis, unspecified organism (principal)
CPT/HCPCS: 96365; J1335; J7030

== ENCOUNTER 2017-09-24 09:50 | Day surgery (SDC) | payer OTHER ==
[~2017-09-24] VITALS: Ht 161.3 cm; Wt 47.4 kg
[~2017-09-24 09:50] MED LIST changes: +ertapenem sod inj 1 GM in normal saline 100ml IVPB IV SCH
[2017-09-24 10:15] VITALS: BP 122/66
[2017-09-24 10:30] VITALS: BP 122/64
[2017-09-24 10:45] VITALS: BP 110/82
[2017-09-24 11:00] VITALS: BP 110/48
[2017-09-24 11:30] VITALS: BP 98/62
[2017-09-24 12:00] VITALS: BP 95/62
== END 2017-09-24 11:55 | disposition home or self-care (01) ==
LOC: SSTAY O 09:50
PROVIDERS: ATTEND Internal Medicine
DX: A41.9 Sepsis, unspecified organism (principal)
CPT/HCPCS: 96365; J1335; J7030

== ENCOUNTER 2017-09-25 10:18 | Day surgery (SDC) | payer OTHER ==
[2017-09-25] VITALS (7 sets, daily range): BP systolic 109–130; BP diastolic 64–96
[~2017-09-25 10:18] MED LIST changes: -ertapenem sod inj 1 GM in normal saline 100ml IVPB IV SCH
[2017-09-25] MEDS ORDERED: ertapenem sod inj 1 GM in normal saline 100ml IVPB IV ONE (10:35)
[2017-09-25 11:36] LABS: BASOPHILS % (AUTO) 0.2 % (0-1); EOSINOPHILS # (AUTO) 0.3 X10'3 (0-0.9); EOSINOPHILS % (AUTO) 2.4 % (0-6); HEMATOCRIT 36.9 % (35.0-45.0); HEMOGLOBIN 12.3 g/dl (12.0-16.0); LYMPHOCYTES # (AUTO) 1.5 X10'3 (1.1-4.8); LYMPHOCYTES % (AUTO) 10.8 % (21-51); MEAN CORPUSCULAR HEMOGLOBIN 29.4 PG (27.0-31.0); MEAN CORPUSCULAR HGB CONC 33.3 % (33.0-36.5); MEAN CORPUSCULAR VOLUME 88.2 FL (78-98); MEAN PLATELET VOLUME 7.3 FL (7.4-10.4); MONOCYTES # (AUTO) 0.7 X10'3 (0-0.9); MONOCYTES % (AUTO) 5.4 % (2-12); NEUTROPHILS % (AUTO) 81.2 % (42-75); PLATELET COUNT 418 X10'3 (140-440); RED BLOOD COUNT 4.18 X10'6 (4.20-5.60); RED CELL DISTRIBUTION WIDTH 15.6 % (11.5-14.5); WHITE BLOOD COUNT 13.6 X10'3 (4.5-11.0)
[2017-09-25 11:54] LABS: ALANINE AMINOTRANSFERASE 136 U/L (12-78); ALBUMIN 3.5 G/DL (3.4-5.0); ALKALINE PHOSPHATASE 71 IU/L (46-116); ANION GAP 8 (8-16); ASPARTATE AMINO TRANSFERASE 76 U/L (10-37); BILIRUBIN,TOTAL 0.5 MG/DL (0.1-1.0); BLOOD UREA NITROGEN 16 MG/DL (7-18); BUN/CREATININE RATIO 21.9 (6.6-38.0); CALCIUM 9.3 MG/DL (8.5-10.1); CHLORIDE 104 MMOL/L (99-107); CREATININE 0.73 MG/DL (0.40-0.90); GLUCOSE 78 MG/DL (70-104); POTASSIUM 4.2 MMOL/L (3.5-5.1); SODIUM 140 MMOL/L (135-145); TOTAL CARBON DIOXIDE 28.3 MMOL/L (24-32); TOTAL PROTEIN 6.9 G/DL (6.4-8.2); eGFR > 90 ML/MIN
== END 2017-09-25 12:08 | disposition home or self-care (01) ==
LOC: SSTAY O 10:18
PROVIDERS: ATTEND Internal Medicine
DX: A41.9 Sepsis, unspecified organism (principal)
CPT/HCPCS: 36415; 71045; 80053; 85025; 96365; J1335

== ENCOUNTER 2017-09-26 10:08 | Day surgery (SDC) | payer OTHER ==
[~2017-09-26] VITALS: Ht 160 cm; Wt 49.2 kg
[2017-09-26] MEDS ORDERED: ertapenem sod inj 1 GM in normal saline 100ml IVPB IV ONE (10:25)
[2017-09-26 10:30] VITALS: BP 104/74
[2017-09-26 10:45] VITALS: BP 113/75
[2017-09-26 11:00] VITALS: BP 113/51
[2017-09-26 11:15] VITALS: BP 114/74
[2017-09-26 11:30] VITALS: BP 110/68
== END 2017-09-26 11:55 | disposition home or self-care (01) ==
LOC: SSTAY O 10:08
PROVIDERS: ATTEND Internal Medicine
DX: A41.9 Sepsis, unspecified organism (principal)
CPT/HCPCS: 36415; 83605; 87040; 96365; J1335

== ENCOUNTER 2017-09-27 10:08 | Day surgery (SDC) | payer OTHER ==
[~2017-09-27] VITALS: Ht 161.3 cm; Wt 47.4 kg
[2017-09-27 10:15] VITALS: BP 113/85
[2017-09-27] MEDS ORDERED: ertapenem sod inj 1 GM in normal saline 100ml IVPB IV ONE (10:30)
[2017-09-27 12:00] VITALS: BP 110/71
== END 2017-09-27 12:00 | disposition home or self-care (01) ==
LOC: SSTAY O 10:08
PROVIDERS: ATTEND Internal Medicine
DX: A41.9 Sepsis, unspecified organism (principal)
CPT/HCPCS: 96365; J1335; J7030

== ENCOUNTER 2017-09-28 10:43 | Day surgery (SDC) | payer OTHER ==
[~2017-09-28] VITALS: Ht 161.3 cm; Wt 47.4 kg
[~2017-09-28 10:43] MED LIST changes: +ertapenem sod inj 1 GM in normal saline 100ml IV soln 100 ML IV ONE
[2017-09-28 11:02] VITALS: BP 123/75
[2017-09-28 11:58] VITALS: BP 127/84
== END 2017-09-28 12:17 | disposition home or self-care (01) ==
LOC: SSTAY O 10:43
PROVIDERS: ATTEND Internal Medicine
DX: A41.9 Sepsis, unspecified organism (principal)
CPT/HCPCS: J1335; J7030; 96365

== ENCOUNTER 2017-09-29 10:33 | Day surgery (SDC) | payer OTHER ==
[~2017-09-29 10:33] MED LIST changes: -ertapenem sod inj 1 GM in normal saline 100ml IV soln 100 ML IV ONE
[2017-09-29] MEDS ORDERED: ertapenem sod inj 1 GM in normal saline 100ml IVPB IV ONE (10:50)
[2017-09-29 10:52] VITALS: BP 119/68
[2017-09-29 12:35] VITALS: BP 112/80
== END 2017-09-29 12:40 | disposition home or self-care (01) ==
LOC: SSTAY O 10:33
PROVIDERS: ATTEND Internal Medicine
DX: A41.9 Sepsis, unspecified organism (principal)
CPT/HCPCS: 96365; J1335; J7030

== ENCOUNTER 2017-09-30 09:34 | Day surgery (SDC) | payer OTHER ==
[2017-09-30] MEDS ORDERED: ertapenem sod inj 1 GM in normal saline 100ml IVPB IV ONE (09:54)
== END 2017-09-30 11:59 | disposition home or self-care (01) ==
LOC: SSTAY O 09:34
PROVIDERS: ATTEND Internal Medicine
DX: A41.9 Sepsis, unspecified organism (principal)
CPT/HCPCS: 96365; J1335; J7030

== ENCOUNTER 2017-10-01 10:15 | Day surgery (SDC) | payer OTHER ==
[~2017-10-01 10:15] MED LIST changes: +ertapenem sod inj 1 GM in normal saline 100ml IVPB IV ONE
[2017-10-01 10:23] VITALS: BP 115/63
[2017-10-01 10:54] LABS: BASOPHILS % (AUTO) 0.3 % (0-1); EOSINOPHILS # (AUTO) 0.1 X10'3 (0-0.9); EOSINOPHILS % (AUTO) 2.1 % (0-6); HEMATOCRIT 33.8 % (35.0-45.0); HEMOGLOBIN 11.3 g/dl (12.0-16.0); LYMPHOCYTES # (AUTO) 1.3 X10'3 (1.1-4.8); LYMPHOCYTES % (AUTO) 21.8 % (21-51); MEAN CORPUSCULAR HEMOGLOBIN 29.3 PG (27.0-31.0); MEAN CORPUSCULAR HGB CONC 33.4 % (33.0-36.5); MEAN CORPUSCULAR VOLUME 87.7 FL (78-98); MEAN PLATELET VOLUME 7.5 FL (7.4-10.4); MONOCYTES # (AUTO) 0.6 X10'3 (0-0.9); NEUTROPHILS # (AUTO) 4.1 X10'3 (1.8-7.7); NEUTROPHILS % (AUTO) 66.8 % (42-75); PLATELET COUNT 221 X10'3 (140-440); RED BLOOD COUNT 3.86 X10'6 (4.20-5.60); RED CELL DISTRIBUTION WIDTH 16.5 % (11.5-14.5); WHITE BLOOD COUNT 6.2 X10'3 (4.5-11.0)
[2017-10-01 11:10] LABS: ALANINE AMINOTRANSFERASE 89 U/L (12-78); ALBUMIN 3.6 G/DL (3.4-5.0); ALBUMIN/GLOBULIN RATIO 1.1 (1.1-1.5); ALKALINE PHOSPHATASE 72 IU/L (46-116); ANION GAP 9 (8-16); ASPARTATE AMINO TRANSFERASE 32 U/L (10-37); BILIRUBIN,TOTAL 0.5 MG/DL (0.1-1.0); BLOOD UREA NITROGEN 8 MG/DL (7-18); BUN/CREATININE RATIO 12.3 (6.6-38.0); CALCIUM 8.8 MG/DL (8.5-10.1); CHLORIDE 104 MMOL/L (99-107); CREATININE 0.65 MG/DL (0.40-0.90); GLUCOSE 91 MG/DL (70-104); POTASSIUM 4.1 MMOL/L (3.5-5.1); SODIUM 138 MMOL/L (135-145); TOTAL CARBON DIOXIDE 25.3 MMOL/L (24-32); TOTAL PROTEIN 6.9 G/DL (6.4-8.2); eGFR > 90 ML/MIN
[2017-10-01 11:50] VITALS: BP 112/64
== END 2017-10-01 11:50 | disposition home or self-care (01) ==
LOC: SSTAY O 10:15
PROVIDERS: ATTEND Internal Medicine
DX: A41.9 Sepsis, unspecified organism (principal)
CPT/HCPCS: 36415; 80053; 85025; 96365; A4333; J1335; J7030

== ENCOUNTER 2017-10-02 10:07 | Day surgery (SDC) | payer OTHER ==
[~2017-10-02 10:07] MED LIST changes: -ertapenem sod inj 1 GM in normal saline 100ml IVPB IV ONE
[2017-10-02 10:20] VITALS: BP 117/66
[2017-10-02] MEDS ORDERED: ertapenem sod inj 1 GM in normal saline 100ml IVPB IV SCH (11:00)
[2017-10-02 11:15] VITALS: BP_SYST 117; BP_DIAS 65; BP_DIAS 66
== END 2017-10-02 11:38 | disposition home or self-care (01) ==
LOC: SSTAY O 10:07
PROVIDERS: ATTEND Internal Medicine
DX: A41.9 Sepsis, unspecified organism (principal)
CPT/HCPCS: 96365; J1335; J7030

== ENCOUNTER 2017-11-11 06:15 | Emergency (ER) | payer OTHER ==
[~2017-11-11] VITALS: Ht 160 cm; Wt 47.0 kg
[~2017-11-11 06:15] MED LIST changes: -BENZ-34 PO; -CITA20TA11 PO; -GUAI473S11 PO; -GUAI5SYR5 PO; -HYDR-565 PO; -MAG355OR18 PO; -ONDA4TAB12 PO; -TRAM50TA2 PO
[2017-11-11 07:05] LABS: CLARITY,URINE Clear (Clear); COLOR,URINE Yellow (Yellow); GLUCOSE, URINE Negative (Neg); KETONES,URINE Negative (Neg); LEUKOCYTE ESTERASE ,URINE Negative (Neg); NITRITES, URINE Negative (Neg); OCCULT BLOOD,URINE Negative (Neg); PROTEIN,URINE Negative (Neg); URINE HCG NEGATIVE (NEG); UROBILINOGEN,URINE 0.2 E.U/dL (0.2-1.0)
[2017-11-11 07:11] LABS: UA COLLECTION TYPE CLN CATCH MIDSTREAM
[2017-11-11 07:45] LABS: BASOPHILS % (AUTO) 0.2 % (0-1); EOSINOPHILS # (AUTO) 0.1 X10'3 (0-0.9); EOSINOPHILS % (AUTO) 1.5 % (0-6); HEMATOCRIT 37.2 % (35.0-45.0); HEMOGLOBIN 12.7 g/dl (12.0-16.0); LYMPHOCYTES # (AUTO) 1.1 X10'3 (1.1-4.8); LYMPHOCYTES % (AUTO) 15.3 % (21-51); MEAN CORPUSCULAR HEMOGLOBIN 29.9 PG (27.0-31.0); MEAN CORPUSCULAR VOLUME 87.8 FL (78-98); MONOCYTES # (AUTO) 0.3 X10'3 (0-0.9); MONOCYTES % (AUTO) 3.7 % (2-12); NEUTROPHILS # (AUTO) 5.9 X10'3 (1.8-7.7); NEUTROPHILS % (AUTO) 79.3 % (42-75); PLATELET COUNT 351 X10'3 (140-440); RED BLOOD COUNT 4.24 X10'6 (4.20-5.60); RED CELL DISTRIBUTION WIDTH 15.6 % (11.5-14.5); WHITE BLOOD COUNT 7.4 X10'3 (4.5-11.0)
[2017-11-11 08:02] LABS: ALANINE AMINOTRANSFERASE 27 U/L (12-78); ALBUMIN 4.2 G/DL (3.4-5.0); ALBUMIN/GLOBULIN RATIO 1.2 (1.1-1.5); ALKALINE PHOSPHATASE 46 IU/L (46-116); ANION GAP 12 (8-16); ASPARTATE AMINO TRANSFERASE 19 U/L (10-37); BILIRUBIN,TOTAL 0.5 MG/DL (0.1-1.0); BLOOD UREA NITROGEN 9 MG/DL (7-18); BUN/CREATININE RATIO 11.4 (6.6-38.0); CALCIUM 8.8 MG/DL (8.5-10.1); CHLORIDE 105 MMOL/L (99-107); CREATININE 0.79 MG/DL (0.40-0.90); GLUCOSE 110 MG/DL (70-104); MAGNESIUM 2.1 MG/DL (1.5-2.4); SODIUM 142 MMOL/L (135-145); TOTAL CARBON DIOXIDE 25.2 MMOL/L (24-32); TOTAL PROTEIN 7.8 G/DL (6.4-8.2); eGFR 85 ML/MIN
[2017-11-11] MEDS ORDERED: potassium Cl oral solution 20 MEQ/15 ML PO ONE (08:15)
[2017-11-11 15:09] VITALS: BP 129/85
== END 2017-11-11 15:11 | disposition home or self-care (01) ==
LOC: ER 06:16
DX: E87.6 Hypokalemia (principal); G43.909 Migraine, unspecified, not intractable, without status migrainosus
CPT/HCPCS: 36415; 71045; 80053; 81003; 81025; 83605; 83735; 84145; 85025; 87040; 99285

== ENCOUNTER 2018-02-13 07:31 | Emergency (ER) | payer OTHER ==
[~2018-02-13] VITALS: Ht 160 cm; Wt 47.7 kg
[2018-02-13 08:03] LABS: BASOPHILS % (AUTO) 0.2 % (0-1); EOSINOPHILS # (AUTO) 0.1 X10'3 (0-0.9); HEMATOCRIT 37.7 % (35.0-45.0); HEMOGLOBIN 12.6 g/dl (12.0-16.0); LYMPHOCYTES # (AUTO) 0.9 X10'3 (1.1-4.8); LYMPHOCYTES % (AUTO) 10.7 % (21-51); MEAN CORPUSCULAR HEMOGLOBIN 30.2 PG (27.0-31.0); MEAN CORPUSCULAR HGB CONC 33.6 % (33.0-36.5); MEAN CORPUSCULAR VOLUME 89.9 FL (78-98); MEAN PLATELET VOLUME 8.3 FL (7.4-10.4); MONOCYTES # (AUTO) 0.6 X10'3 (0-0.9); MONOCYTES % (AUTO) 6.5 % (2-12); NEUTROPHILS # (AUTO) 7.1 X10'3 (1.8-7.7); NEUTROPHILS % (AUTO) 81.6 % (42-75); PLATELET COUNT 296 X10'3 (140-440); RED BLOOD COUNT 4.19 X10'6 (4.20-5.60); RED CELL DISTRIBUTION WIDTH 15.4 % (11.5-14.5); WHITE BLOOD COUNT 8.6 X10'3 (4.5-11.0)
[2018-02-13 08:12] LABS: ALANINE AMINOTRANSFERASE 24 U/L (12-78); ALBUMIN 4.2 G/DL (3.4-5.0); ALBUMIN/GLOBULIN RATIO 1.3 (1.1-1.5); ALKALINE PHOSPHATASE 59 IU/L (46-116); ANION GAP 9 (8-16); ASPARTATE AMINO TRANSFERASE 28 U/L (10-37); BILIRUBIN,TOTAL 0.4 MG/DL (0.1-1.0); BLOOD UREA NITROGEN 10 MG/DL (7-18); BUN/CREATININE RATIO 13.3 (6.6-38.0); CALCIUM 8.9 MG/DL (8.5-10.1); CHLORIDE 104 MMOL/L (99-107); CREATININE 0.75 MG/DL (0.40-0.90); GLUCOSE 99 MG/DL (70-104); MAGNESIUM 2.3 MG/DL (1.5-2.4); POTASSIUM 3.8 MMOL/L (3.5-5.1); SODIUM 141 MMOL/L (135-145); TOTAL CARBON DIOXIDE 27.7 MMOL/L (24-32); TOTAL PROTEIN 7.5 G/DL (6.4-8.2); eGFR > 90 ML/MIN
[2018-02-13 08:13] LABS: PARTIAL THROMBOPLASTIN TIME 27 SECONDS (22-32); PROTHROMBIN TIME 10.2 SECONDS (9.0-12.0)
[2018-02-13 08:22] LABS: URINE HCG NEGATIVE (NEG)
[2018-02-13 08:23] LABS: CLARITY,URINE CLEAR (Clear); COLOR,URINE YELLOW (Yellow); GLUCOSE, URINE NEGATIVE (Neg); KETONES,URINE NEGATIVE (Neg); LEUKOCYTE ESTERASE ,URINE NEGATIVE (Neg); NITRITES, URINE NEGATIVE (Neg); OCCULT BLOOD,URINE NEGATIVE (Neg); PH,URINE 8.5 (4.8-8.0); PROTEIN,URINE TRACE mg/dl (Neg); UROBILINOGEN,URINE 0.2 E.U/dL (0.2-1.0)
[2018-02-13 08:31] LABS: UA COLLECTION TYPE CLN CATCH MIDSTREAM
[2018-02-13 08:34] LABS: BACTERIA,URINE FEW /HPF (Neg); MUCUS STRANDS FEW /LPF (Neg); RBC,URINE 0-2 /HPF (0-2); SQUAMOUS EPITHELIAL CELL,UR MODERATE /LPF (FEW); WBC,URINE 0-4 /HPF (0-4)
[2018-02-13 08:35] LABS: HYALINE CASTS 0-3 /LPF (NEGATIVE)
[2018-02-13 08:38] VITALS: BP 146/72
== END 2018-02-13 08:40 | disposition home or self-care (01) ==
LOC: ER 07:32
DX: J20.9 Acute bronchitis, unspecified (principal); G43.909 Migraine, unspecified, not intractable, without status migrainosus; Z79.899 Other long term (current) drug therapy
CPT/HCPCS: 36415; 71045; 80053; 81001; 81025; 83605; 83735; 84145; 85025; 85610; 85730; 87040; 93005; 99285

== ENCOUNTER 2021-05-14 02:23 | Emergency (ER) | payer MEDICAID, OTHER ==
[~2021-05-14] VITALS: Ht 160 cm; Wt 51.5 kg
[2021-05-14 03:20] VITALS: BP 136/90
== END 2021-05-14 06:44 | disposition left against medical advice (07) ==
LOC: ER 02:23
DX: M25.512 Pain in left shoulder (principal); Z53.21 Procedure and treatment not carried out due to patient leaving prior to being seen by health care provider

== ENCOUNTER → 2021-05-15 | Emergency (ER) | payer OTHER, MEDICAID ==
[~2021-05-15] VITALS: Ht 160 cm; Wt 45.5 kg
[~2021-05-15] MED LIST changes: +ibuprofen tablet 400 MG TABLET PO ONE
[2021-05-15 02:53] VITALS: BP 136/76
== END | disposition home or self-care (01) ==
LOC: ER 02:49
DX: M25.512 Pain in left shoulder (principal); M25.552 Pain in left hip; G43.909 Migraine, unspecified, not intractable, without status migrainosus; Z87.01 Personal history of pneumonia (recurrent); Z79.899 Other long term (current) drug therapy; V87.7XXA Person injured in collision between other specified motor vehicles (traffic), initial encounter; Y93.89 Activity, other specified; Y92.89 Other specified places as the place of occurrence of the external cause; Y99.8 Other external cause status
CPT/HCPCS: 73030; 73502; 99284

== ENCOUNTER 2021-11-10 22:17 | Emergency (ER) | payer MEDICAID, OTHER ==
[~2021-11-10] VITALS: Ht 160 cm; Wt 49.1 kg
[~2021-11-10 22:17] MED LIST changes: -ibuprofen tablet 400 MG TABLET PO ONE
[2021-11-11 01:29] LABS: BASOPHILS % (AUTO) 0.2 % (0-1); EOSINOPHILS # (AUTO) 0.1 X10'3 (0-0.9); EOSINOPHILS % (AUTO) 2.7 % (0-6); HEMATOCRIT 34.6 % (35.0-45.0); HEMOGLOBIN 11.7 g/dl (12.0-16.0); LYMPHOCYTES # (AUTO) 1.3 X10'3 (1.1-4.8); LYMPHOCYTES % (AUTO) 26.6 % (21-51); MEAN CORPUSCULAR HEMOGLOBIN 28.9 PG (27.0-31.0); MEAN CORPUSCULAR HGB CONC 33.8 g/dL (33.0-36.5); MEAN CORPUSCULAR VOLUME 85.6 FL (78-98); MEAN PLATELET VOLUME 7.9 FL (7.4-10.4); MONOCYTES # (AUTO) 0.5 X10'3 (0-0.9); MONOCYTES % (AUTO) 9.9 % (2-12); NEUTROPHILS % (AUTO) 60.6 % (42-75); PLATELET COUNT 253 X10'3 (140-440); RED BLOOD COUNT 4.04 X10'6 (4.20-5.60); RED CELL DISTRIBUTION WIDTH 14.3 % (11.5-14.5)
[2021-11-11 01:43] LABS: D-DIMER < 0.19 MG/L FEU (0-0.50)
[2021-11-11 01:57] LABS: ALANINE AMINOTRANSFERASE 20 U/L (12-78); ALBUMIN 3.6 G/DL (3.4-5.0); ALBUMIN/GLOBULIN RATIO 1.1 (1.1-1.5); ALKALINE PHOSPHATASE 78 IU/L (46-116); ANION GAP 7 (8-16); ASPARTATE AMINO TRANSFERASE 21 U/L (10-37); BILIRUBIN,TOTAL 0.4 MG/DL (0.1-1.0); BLOOD UREA NITROGEN 12 MG/DL (7-18); BUN/CREATININE RATIO 17.1 (6.6-38.0); C-REACTIVE PROTEIN 1.46 MG/DL (0.0-0.5); CALCIUM 8.6 MG/DL (8.5-10.1); CHLORIDE 104 MMOL/L (99-107); GLUCOSE 103 MG/DL (70-104); MAGNESIUM 1.9 MG/DL (1.5-2.4); POTASSIUM 3.7 MMOL/L (3.5-5.1); SODIUM 141 MMOL/L (135-145); TOTAL CARBON DIOXIDE 30.5 MMOL/L (24-32); eGFR > 90 ML/MIN
[2021-11-11] MEDS ORDERED: DOXYCYCLINE 100MG CAPSULE PO STA (02:57)
[2021-11-11] MEDS ORDERED: triamcinolone acetonide 40mg/ml inj IM ONE ×2 (03:00→03:10)
[2021-11-11] MEDS ORDERED: naproxen 500mg tablet PO ONE (03:00)
[2021-11-11] MEDS ORDERED: colchicine 0.6mg tablet PO ONE (03:00)
[2021-11-11] MEDS ORDERED: COLC0.6T72 PO (03:01)
[2021-11-11] MEDS ORDERED: DOXY-411 PO (03:01)
[2021-11-11 03:21] VITALS: BP 120/65
== END 2021-11-11 03:25 | disposition home or self-care (01) ==
LOC: ER 22:17
DX: L03.116 Cellulitis of left lower limb (principal); M25.572 Pain in left ankle and joints of left foot; G43.909 Migraine, unspecified, not intractable, without status migrainosus; Z79.899 Other long term (current) drug therapy
CPT/HCPCS: 36415; 71045; 80053; 83605; 83735; 84145; 84550; 85025; 85379; 85651; 86140; 87040; 93005; 96372; 99285; J3301

== ENCOUNTER 2022-08-11 23:12 | Emergency (ER) | payer MEDICAID ==
[~2022-08-11] VITALS: Ht 160 cm; Wt 45.5 kg
[~2022-08-11 23:12] MED LIST changes: +COLC0.6T72 PO
[2022-08-11] MEDS ORDERED: ibuprofen tablet 400 MG TABLET PO ONE (23:45)
[2022-08-12 00:12] LABS: URINE HCG NEGATIVE (NEG)
[2022-08-12 00:22] LABS: COLOR,URINE YELLOW (Yellow); GLUCOSE, URINE NEGATIVE (Neg); KETONES,URINE TRACE mg/dl (Neg); LEUKOCYTE ESTERASE ,URINE TRACE (Neg); NITRITES, URINE POSITIVE (Neg); OCCULT BLOOD,URINE MODERATE (Neg); PROTEIN,URINE 100 mg/dl (Neg)
[2022-08-12 00:24] LABS: UA COLLECTION TYPE CLN CATCH MIDSTREAM
[2022-08-12 00:32] LABS: CLARITY,URINE SLIGHTLY CLOUDY (Clear)
[2022-08-12 00:33] LABS: BACTERIA,URINE 3+ /HPF (Neg); RBC,URINE 0-2 /HPF (0-2); WBC,URINE 30-50 /HPF (0-4)
[2022-08-12 00:34] LABS: MUCUS STRANDS NONE SEEN /LPF (Neg); SQUAMOUS EPITHELIAL CELL,UR FEW /LPF (FEW)
[2022-08-12 06:25] VITALS: BP 117/70
[2022-08-12] MEDS ORDERED: DOXYCYCLINE 100MG CAPSULE PO STA (06:46)
[2022-08-12] MEDS ORDERED: ONDA4TAB12 PO (06:49)
[2022-08-12] MEDS ORDERED: DOXY-243 PO (06:49)
[2022-08-12] MEDS ORDERED: ondansetron 4mg rapidly disintigrating tab PO ONE (06:50)
[2022-08-12] MEDS ORDERED: dexamethasone 4mg tablet PO ONE (06:55)
[2022-08-12] MEDS ORDERED: albuterol 2.5 MG/3 ML nebule NEB ONE (06:55)
[2022-08-12] MEDS ORDERED: ALBU6.7H14 INH (06:57)
[2022-08-12] MEDS ORDERED: ALB0.5UD IH (06:57)
[2022-08-12] MEDS ORDERED: succinylcholine 20mg/ml inj IV ONE (07:04)
== END 2022-08-12 09:10 | disposition home or self-care (01) ==
LOC: ER 23:13
DX: J10.1 Influenza due to other identified influenza virus with other respiratory manifestations (principal); Z20.822 Contact with and (suspected) exposure to COVID-19; H66.93 Otitis media, unspecified, bilateral; N39.0 Urinary tract infection, site not specified; J10.00 Influenza due to other identified influenza virus with unspecified type of pneumonia; G43.909 Migraine, unspecified, not intractable, without status migrainosus; Z79.899 Other long term (current) drug therapy
CPT/HCPCS: 71045; 81001; 81025; 87502; 87503; 87635; 94640; 99284; C9803; J0330; 94760

== ENCOUNTER 2022-08-16 19:30 | Emergency (ER) | payer MEDICAID ==
[~2022-08-16] VITALS: Ht 162.6 cm; Wt 48.0 kg
[~2022-08-16 19:30] MED LIST changes: +ALB0.5UD IH; +ALBU6.7H14 INH; +DOXY-243 PO; +ONDA4TAB12 PO
[2022-08-16] MEDS ORDERED: ipratropium/albuterol 3ml nebule NEB ONE (21:00)
[2022-08-16] MEDS ORDERED: normal saline 1000ML IV soln IV ONE (21:35)
[2022-08-16] MEDS ORDERED: ondansetron/PF 4mg/2ml inj IV ONE (21:35)
[2022-08-16] MEDS ORDERED: CefTRIAXone 2gm/D5W 50ml BAG 50 ML IV ONE (21:35)
[2022-08-16] MEDS ORDERED: methylPREDNISolone sod succ 125mg/2ml vial IV ONE (21:40)
[2022-08-16] MEDS ORDERED: azithromycin/NS 500mg/250ml 250 ML IV ONE (21:40)
[2022-08-16 21:43] LABS: BASOPHILS % (AUTO) 0.2 % (0-1); EOSINOPHILS % (AUTO) 0 % (0-6); HEMATOCRIT 32.7 % (35.0-45.0); HEMOGLOBIN 10.7 g/dl (12.0-16.0); LYMPHOCYTES # (AUTO) 1.4 X10'3 (1.1-4.8); LYMPHOCYTES % (AUTO) 7.4 % (21-51); MEAN CORPUSCULAR HEMOGLOBIN 27.7 PG (27.0-31.0); MEAN CORPUSCULAR HGB CONC 32.7 g/dL (33.0-36.5); MEAN CORPUSCULAR VOLUME 84.5 FL (78-98); MEAN PLATELET VOLUME 7.6 FL (7.4-10.4); MONOCYTES # (AUTO) 1.1 X10'3 (0-0.9); MONOCYTES % (AUTO) 5.9 % (2-12); NEUTROPHILS # (AUTO) 16.8 X10'3 (1.8-7.7); NEUTROPHILS % (AUTO) 86.5 % (42-75); PLATELET COUNT 525 X10'3 (140-440); RED BLOOD COUNT 3.86 X10'6 (4.20-5.60); RED CELL DISTRIBUTION WIDTH 15.6 % (11.5-14.5); WHITE BLOOD COUNT 19.4 X10'3 (4.5-11.0)
[2022-08-16 21:57] LABS: ALANINE AMINOTRANSFERASE 29 U/L (12-78); ALBUMIN 2.8 G/DL (3.4-5.0); ALBUMIN/GLOBULIN RATIO 0.5 (1.1-1.5); ALKALINE PHOSPHATASE 89 IU/L (46-116); ANION GAP 10 (8-16); ASPARTATE AMINO TRANSFERASE 17 U/L (10-37); BILIRUBIN,TOTAL 0.6 MG/DL (0.1-1.0); BLOOD UREA NITROGEN 12 MG/DL (7-18); BUN/CREATININE RATIO 16.2 (6.6-38.0); CALCIUM 9.3 MG/DL (8.5-10.1); CHLORIDE 100 MMOL/L (99-107); CREATININE 0.74 MG/DL (0.40-0.90); GLUCOSE 137 MG/DL (70-104); SODIUM 139 MMOL/L (135-145); TOTAL CARBON DIOXIDE 28.8 MMOL/L (24-32); TOTAL PROTEIN 7.9 G/DL (6.4-8.2); eGFR 89 ML/MIN
[2022-08-16 22:15] VITALS: BP 115/65
[2022-08-16] MEDS ORDERED: PRED20TA PO (22:50)
[2022-08-16] MEDS ORDERED: albuterol 2.5 MG/3 ML nebule NEB ONE (22:50)
[2022-08-16] MEDS ORDERED: ONDA4TAB12 PO (22:50)
[2022-08-16] MEDS ORDERED: ALBU6.7H14 INH (22:50)
[2022-08-16] MEDS ORDERED: CEPH250T PO (22:50)
[2022-08-16] MEDS ORDERED: ketorolac trometh. 30mg/ml inj. IV ONE (22:50)
[2022-08-16] MEDS ORDERED: acetaminophen 325mg tablet PO ONE (22:50)
--- NOTE | 2022-08-18 09:50 | NUR ---
PT CALLED AT PROVIDERS REQUEST TO SEE HOW SHE IS DOING. PT STATES THAT SHE FEELS LIKE "CRAP", NOTED TO BE OUT OF BREATH WHEN TALKING AND STATES THAT SHE "FEELS MY O2 SATS DROPPING WHEN WALKING." PT NOTIFIED THAT SHE DID HAVE A POSITIVE BLOOD CULTURE FOR [employer] NEG RODS IN ONE BLOOD CULTURE BOTTLE AND IT WOULD BE ADVISABLE FOR HER TO RETURN TO THE ER. PT STATES THAT SHE REALLY DOES NOT WANT TO COME BACK IN BUT WILL CONSIDER IT SHOULD SHE START TO FEEL WORSE AND BECOME INCREASINGLY SOB. DR BRYSON NOTIFIED
== END 2022-08-17 00:13 | disposition home or self-care (01) ==
LOC: ER 19:30
DX: J18.9 Pneumonia, unspecified organism (principal); J10.1 Influenza due to other identified influenza virus with other respiratory manifestations; G43.909 Migraine, unspecified, not intractable, without status migrainosus; Z79.899 Other long term (current) drug therapy; Z79.1 Long term (current) use of non-steroidal anti-inflammatories (NSAID)
CPT/HCPCS: 36415; 71045; 80053; 83605; 84145; 85025; 87040; 87077; 94640; 96365; 96367; 96375; 99284; J0456; J0696; J1885; J2405; J2930; J7030; 94760

== ENCOUNTER 2023-05-18 21:49 | Emergency (ER) | payer MEDICAID ==
[~2023-05-18] VITALS: Ht 160 cm; Wt 50.0 kg
[~2023-05-18 21:49] MED LIST changes: -DOXY-243 PO
[2023-05-18 21:57] VITALS: TEMP 97.7
--- NOTE | 2023-05-18 23:02 | NUR ---
PT REQUESTS THAT THIS RN DELAY PLACEMENT OF IV UNTIL DR ORDERS IV MEDS
[2023-05-18 23:05] LABS: BASOPHILS % (AUTO) 0.4 % (0-1); EOSINOPHILS # (AUTO) 0.2 X10'3 (0-0.9); EOSINOPHILS % (AUTO) 3.4 % (0-6); HEMATOCRIT 37.4 % (35.0-45.0); HEMOGLOBIN 12.2 g/dl (12.0-16.0); LYMPHOCYTES # (AUTO) 0.9 X10'3 (1.1-4.8); LYMPHOCYTES % (AUTO) 18.6 % (21-51); MEAN CORPUSCULAR HEMOGLOBIN 27.5 PG (27.0-31.0); MEAN CORPUSCULAR HGB CONC 32.7 g/dL (33.0-36.5); MEAN CORPUSCULAR VOLUME 84.1 FL (78-98); MEAN PLATELET VOLUME 7.9 FL (7.4-10.4); MONOCYTES # (AUTO) 0.5 X10'3 (0-0.9); MONOCYTES % (AUTO) 9.9 % (2-12); NEUTROPHILS # (AUTO) 3.3 X10'3 (1.8-7.7); NEUTROPHILS % (AUTO) 67.7 % (42-75); PLATELET COUNT 228 X10'3 (140-440); RED BLOOD COUNT 4.45 X10'6 (4.20-5.60); RED CELL DISTRIBUTION WIDTH 16.6 % (11.5-14.5); WHITE BLOOD COUNT 4.8 X10'3 (4.5-11.0)
[2023-05-18 23:07] LABS: ALANINE AMINOTRANSFERASE 23 U/L (12-78); ALBUMIN 3.7 G/DL (3.4-5.0); ALBUMIN/GLOBULIN RATIO 0.9 (1.1-1.5); ALKALINE PHOSPHATASE 93 IU/L (46-116); ANION GAP 8 (8-16); ASPARTATE AMINO TRANSFERASE 27 U/L (10-37); BILIRUBIN,TOTAL 0.6 MG/DL (0.1-1.0); BLOOD UREA NITROGEN 14 MG/DL (7-18); BUN/CREATININE RATIO 19.7 (10.0-20.0); CHLORIDE 104 MMOL/L (99-107); CREATININE 0.71 MG/DL (0.40-0.90); GLUCOSE 76 MG/DL (70-104); POTASSIUM 3.4 MMOL/L (3.5-5.1); SODIUM 143 MMOL/L (135-145); TOTAL CARBON DIOXIDE 31.3 MMOL/L (24-32); TOTAL PROTEIN 7.6 G/DL (6.4-8.2); eCRCL 87 ML/MIN; eGFR > 90 ML/MIN
[2023-05-18 23:11] VITALS: BP 129/55; PULSE 103; RESP 16; O2SAT 96
[2023-05-18 23:22] LABS: BETA HCG,QUANTITATIVE 2 mIU/ml
== END 2023-05-18 23:32 | disposition home or self-care (01) ==
LOC: ER 21:50
DX: N93.9 Abnormal uterine and vaginal bleeding, unspecified (principal); G43.909 Migraine, unspecified, not intractable, without status migrainosus; Z79.899 Other long term (current) drug therapy
CPT/HCPCS: 36415; 80053; 84702; 85025; 86885; 86900; 86901; 99283

== ENCOUNTER 2023-07-13 15:02 | Outpatient (CLI) | payer MEDICAID | END 2023-07-13 23:59 | disposition home or self-care (01) | LOC: RAD 15:02 | PROVIDERS: ATTEND Physician Assistant | DX: I45.10 Unspecified right bundle-branch block (principal); F11.20 Opioid dependence, uncomplicated; R94.31 Abnormal electrocardiogram [ECG] [EKG] | CPT/HCPCS: 93005 ==

== ENCOUNTER 2023-07-16 23:54 | Emergency (ER) | payer MEDICAID ==
[~2023-07-16] VITALS: Ht 160 cm; Wt 50.0 kg
[2023-07-17] MEDS ORDERED: ipratropium/albuterol 3ml nebule NEB ONE (00:25)
[2023-07-17] MEDS ORDERED: benzonatate 100mg capsule PO ONE (00:30)
[2023-07-17] MEDS ORDERED: methylPREDNISolone sod succ 125mg/2ml vial IV ONE (00:30)
[2023-07-17] MEDS ORDERED: CefTRIAXone 2gm/D5W 50ml BAG 50 ML IV ONE (00:30)
[2023-07-17] MEDS ORDERED: azithromycin/NS 500mg/250ml 250 ML IV ONE (00:30)
[2023-07-17] MEDS ORDERED: ketorolac trometh. 30mg/ml inj. IV ONE (00:30)
[2023-07-17] MEDS ORDERED: CEPH250T PO (00:36)
[2023-07-17] MEDS ORDERED: PRED5TAB PO (00:36)
[2023-07-17] MEDS ORDERED: AZIT-164 PO (00:36)
[2023-07-17] MEDS ORDERED: BENZ-38 PO (00:36)
[2023-07-17 01:01] VITALS: PULSE 100; RESP 16; O2SAT 100
[2023-07-17] MEDS ORDERED: cephalexin 250mg capsule PO ONE (01:05)
[2023-07-17] MEDS ORDERED: dexamethasone 4mg tablet PO ONE (01:05)
[2023-07-17] MEDS ORDERED: ondansetron 4mg rapidly disintigrating tab PO ONE (01:05)
[2023-07-17] MEDS ORDERED: azithromycin 250mg tablet PO ONE (01:05)
[2023-07-17 01:08] VITALS: PULSE 96; RESP 16; O2SAT 100
[2023-07-17 01:43] VITALS: BP 112/70; PULSE 76; RESP 16; TEMP 98.2; O2SAT 100
== END 2023-07-17 01:45 | disposition home or self-care (01) ==
LOC: ER 23:55
DX: R05.9 Cough, unspecified (principal); G43.909 Migraine, unspecified, not intractable, without status migrainosus; Z79.899 Other long term (current) drug therapy; Z20.822 Contact with and (suspected) exposure to COVID-19
CPT/HCPCS: 36415; 87502; 87503; 87811; 94640; 99284; J7030

== ENCOUNTER 2023-07-19 11:32 | Outpatient (CLI) | payer MEDICAID ==
[~2023-07-19 11:32] MED LIST changes: +AZIT-164 PO; +BENZ-38 PO; +CEPH250T PO; +PRED5TAB PO
== END 2023-07-19 23:59 | disposition home or self-care (01) ==
LOC: RAD 11:32
PROVIDERS: ATTEND Physician Assistant
DX: R94.31 Abnormal electrocardiogram [ECG] [EKG] (principal); F11.20 Opioid dependence, uncomplicated
CPT/HCPCS: 93005

== ENCOUNTER 2023-09-19 10:32 | Outpatient (CLI) | payer MEDICAID ==
[~2023-09-19 10:32] MED LIST changes: -AZIT-164 PO; -BENZ-38 PO; -CEPH250T PO
== END 2023-09-19 23:59 | disposition home or self-care (01) ==
LOC: RAD 10:32
PROVIDERS: ATTEND Physician Assistant
DX: F11.20 Opioid dependence, uncomplicated (principal)
CPT/HCPCS: 93005